=== PATIENT | female | born 1990 | race Caucasian/White ===

== ENCOUNTER 2019-10-09 16:55 | Emergency (ER) | payer OTHER ==
[~2019-10-09 16:55] MED LIST: LITHIUM CARBON300 M3 PO; MINIPRESS2 MG PO; NORCO 5-325 TA1 EACH PO; ROBAXIN 750 MG750 M1 PO; TRAZODONE HCL100 MG PO
[2019-10-09 17:00] VITALS: BP 130/88
[2019-10-09] MEDS ORDERED: MOBIC15 MG PO (17:37)
[2019-10-09] MEDS ORDERED: NORFLEX100 MG PO (17:37)
== END 2019-10-09 18:24 | disposition home or self-care (01) ==
LOC: ER 16:55
DX: G89.29 Other chronic pain (principal); M54.5 Low back pain; Z88.6 Allergy status to analgesic agent; Z88.5 Allergy status to narcotic agent; Z88.0 Allergy status to penicillin